=== PATIENT | male | born 1985 | race Caucasian/White ===

== ENCOUNTER 2021-06-02 12:49 | Emergency (ER) | payer BC ==
[~2021-06-02] VITALS: Ht 175.3 cm; Wt 127.0 kg
== END 2021-06-02 17:15 | disposition home or self-care (01) ==
LOC: ER1 12:49
DX: U07.1 COVID-19 (principal); Z23 Encounter for immunization; I10 Essential (primary) hypertension; E07.9 Disorder of thyroid, unspecified
CPT/HCPCS: 71045; 99285; M0243; U0002